=== PATIENT | male | born 1970 | race Caucasian/White ===

== ENCOUNTER → 2021-03-07 | Emergency (ER) | payer BC ==
[~2021-03-07] VITALS: Ht 190.5 cm; Wt 100.5 kg
[~2021-03-07] MED LIST: LIDOcaine 1% W/epiNEPHrine 1:200,000 10ml vial IJ ONE; LIDOcaine 1% w/epiNEPHrine 1:200,000 30ml vial IJ ONE; bacitracin 15gm ointment TP ONE
[2021-03-07 11:26] VITALS: BP 132/88
== END | disposition home or self-care (01) ==
LOC: ER 14:22
DX: S61.313A Laceration without foreign body of left middle finger with damage to nail, initial encounter (principal); I25.10 Atherosclerotic heart disease of native coronary artery without angina pectoris; I25.2 Old myocardial infarction; Z88.8 Allergy status to other drugs, medicaments and biological substances; W27.2XXA Contact with scissors, initial encounter; Y93.89 Activity, other specified; Y92.89 Other specified places as the place of occurrence of the external cause; Y99.8 Other external cause status
CPT/HCPCS: 12001; 99282